=== PATIENT | female | born 1950 ===

== ENCOUNTER 2021-05-03 05:20 | Day surgery (SDC) | payer OTHER ==
[~2021-05-03] VITALS: Ht 149.9 cm; Wt 61.2 kg
[~2021-05-03 05:20] MED LIST: GABAPENTIN300 M2 PO; LIPITOR20 MG PO; SYNTHROID100 MCG PO; VASOTEC10 MG PO
[2021-05-03] MEDS ORDERED: FLUOCINOLONE AC20 ML (08:16)
[2021-05-03] MEDS ORDERED: LIDOCAINE1 EACH (08:16)
[2021-05-03] MEDS ORDERED: DICLOFENAC SOD100 GM (08:17)
[2021-05-03] MEDS ORDERED: FAMOTIDINE40 MG (08:17)
[2021-05-03] MEDS ORDERED: LANSOPRAZOLE30 MG (08:17)
[2021-05-03] MEDS ORDERED: ATORVASTATIN CA20 MG (08:17)
[2021-05-03] MEDS ORDERED: MELOXICAM15 MG (08:17)
[2021-05-03] MEDS ORDERED: PANTOPRAZOLE SO40 MG (08:17)
[2021-05-03] MEDS ORDERED: TIZANIDINE HCL4 MG (08:18)
[2021-05-03] MEDS ORDERED: ESTRADIOL42.5 GM (08:18)
[2021-05-03] MEDS ORDERED: COLACE100 MG PO (10:25)
[2021-05-03] MEDS ORDERED: PERCOCET 5-3251 EACH PO (10:25)
[2021-05-03] MEDS ORDERED: MEDROLPACK PO (10:25)
== END 2021-05-04 13:32 | disposition home or self-care (01) ==
LOC: O/R 05:20 → SURH 05:20 → CIR.AMB 05:20 → O/R 11:31 → SURH 11:31 → CIR.AMB 05-04 13:32 → SURH 05-04 13:32
PROVIDERS: ATTEND Orthopaedic Surgery Orthopaedic Surgery of the Spine
DX: M50.023 Cervical disc disorder at C6-C7 level with myelopathy (principal)
CPT/HCPCS: 22551; 20939; 22853; C1776